=== PATIENT | female | born 1975 | race Two or more races ===

== ENCOUNTER 2018-06-26 14:44 | Emergency (ER) | payer OTHER ==
[~2018-06-26] VITALS: Ht 157.5 cm; Wt 54.0 kg
[2018-06-26] MEDS ORDERED: HYDROCODONE/APAP 10/325MG 1 EA TABLET ONE (15:58)
[2018-06-26] MEDS ORDERED: ONDANSETRON 4 MG TAB.RAPDIS ONE (15:58)
[2018-06-26] MEDS ORDERED: HYDROCODONE/APAP 10/325MG 1 EA TABLET PO ONE (16:00)
[2018-06-26] MEDS ORDERED: ONDANSETRON 4 MG TAB.RAPDIS SL ONE ×2 (16:00→17:30)
[2018-06-26 17:53] VITALS: BP 132/55
== END 2018-06-26 17:54 | disposition home or self-care (01) ==
LOC: ER 14:47
DX: S09.8XXA Other specified injuries of head, initial encounter (principal); M54.2 Cervicalgia; M54.6 Pain in thoracic spine; V49.49XA Driver injured in collision with other motor vehicles in traffic accident, initial encounter; Y93.89 Activity, other specified; Y92.413 State road as the place of occurrence of the external cause; Y99.8 Other external cause status
CPT/HCPCS: 70450-TC; 72125-TC; 73564-TC; 73590-TC; A4606; L0172; Q0162; Z7610